=== PATIENT | female | born 1965 | race Caucasian/White ===

== ENCOUNTER 2021-01-28 19:17 | Emergency (ER) | payer OTHER ==
[~2021-01-28 19:17] MED LIST: FELDENE10 MG PO; FLEXERIL 10 MG10 MG PO; LORCET 5-325 M1 EACH PO; NORCO 7.5-3251 EACH PO; NORFLEX 100 MG100 MG PO; PREDNISONE 20 M20 MG PO; PREDNISONE 50 M50 MG PO; VENTOLIN HFA 66.7 GM INH; Voltaren Gel 1 % TOP
[2021-01-28 20:21] LABS: RED BLOOD COUNT 5.11 M/UL (4.00-5.10); WHITE BLOOD COUNT 10.4 K/UL (4.5-11.0)
[2021-01-28 20:39] LABS: BUN/CREATININE RATIO 16 (0-10)
[2021-01-28] MEDS ORDERED: PERCOCET 5/325 T1 EA PO (23:21)
== END 2021-01-28 23:40 | disposition home or self-care (01) ==
LOC: ER1 19:17
PROVIDERS: Family Medicine
DX: R10.31 Right lower quadrant pain (principal); F17.210 Nicotine dependence, cigarettes, uncomplicated
CPT/HCPCS: 72100; 73502; 80053; 81001; 84703; 85025; 99284; J2060; J2270; J2550; Q9967

== ENCOUNTER 2021-06-02 18:10 | Emergency (ER) | payer OTHER ==
[~2021-06-02 18:10] MED LIST changes: +PERCOCET 5/325 T1 EA PO
[2021-06-02] MEDS ORDERED: NORFLEX 100 MG100 MG PO (21:17)
== END 2021-06-02 21:35 | disposition home or self-care (01) ==
LOC: ER1 18:10
DX: M25.551 Pain in right hip (principal); I10 Essential (primary) hypertension; Z87.442 Personal history of urinary calculi; F17.210 Nicotine dependence, cigarettes, uncomplicated; Z88.6 Allergy status to analgesic agent; Z88.0 Allergy status to penicillin; Z88.8 Allergy status to other drugs, medicaments and biological substances
CPT/HCPCS: 72192; 99283; J1885

== ENCOUNTER → 2021-06-20 | Outpatient (CLI) | payer OTHER | LOC: EMI 15:04 | DX: M87.051 Idiopathic aseptic necrosis of right femur (principal); M25.451 Effusion, right hip | CPT/HCPCS: 73721 ==

== ENCOUNTER → 2021-07-08 | Outpatient (CLI) | payer OTHER | LOC: NM 10:00 | DX: K31.84 Gastroparesis (principal) | CPT/HCPCS: 78264; A9541 ==

== ENCOUNTER 2021-08-09 13:07 | Emergency (ER) | payer OTHER ==
[~2021-08-09] VITALS: Ht 172.7 cm; Wt 79.4 kg
== END 2021-08-09 16:30 | disposition home or self-care (01) ==
LOC: ER1 13:07
DX: U07.1 COVID-19 (principal); Z23 Encounter for immunization; I10 Essential (primary) hypertension; G43.909 Migraine, unspecified, not intractable, without status migrainosus; Z87.442 Personal history of urinary calculi; F17.200 Nicotine dependence, unspecified, uncomplicated; Z88.0 Allergy status to penicillin; Z88.8 Allergy status to other drugs, medicaments and biological substances
CPT/HCPCS: 71045; 93005; 99284; M0245

== ENCOUNTER 2021-11-07 17:04 | Emergency (ER) | payer OTHER ==
[2021-11-07 19:17] LABS: HEMOGLOBIN 15.3 gm/dl (12.3-15.3); RED BLOOD COUNT 4.82 M/UL (4.00-5.10); WHITE BLOOD COUNT 8.7 K/UL (4.5-11.0)
[2021-11-07 19:35] LABS: BUN/CREATININE RATIO 16 (0-10)
== END 2021-11-07 22:43 | disposition home or self-care (01) ==
LOC: ER1 17:04
PROVIDERS: Physician Assistant
DX: G89.29 Other chronic pain (principal); R10.9 Unspecified abdominal pain; R11.2 Nausea with vomiting, unspecified; F41.9 Anxiety disorder, unspecified; F17.290 Nicotine dependence, other tobacco product, uncomplicated; F11.20 Opioid dependence, uncomplicated
CPT/HCPCS: 80053; 81001; 83690; 85025; 99284; Q9967

== ENCOUNTER 2021-11-28 06:59 | Emergency (ER) | payer OTHER ==
[2021-11-28 08:26] LABS: RED BLOOD COUNT 4.49 M/UL (4.00-5.10); WHITE BLOOD COUNT 8.9 K/UL (4.5-11.0)
[2021-11-28 08:47] LABS: BUN/CREATININE RATIO 25 (0-10)
[2021-11-28] MEDS ORDERED: ZOFRAN 4 MG TAB4 MG PO (12:24)
[2021-11-28] MEDS ORDERED: MOTION SICKNESS25 M3 PO (12:24)
== END 2021-11-28 12:30 | disposition home or self-care (01) ==
LOC: ER1 06:59
PROVIDERS: Physician Assistant Medical
DX: R10.13 Epigastric pain (principal); R10.816 Epigastric abdominal tenderness; I10 Essential (primary) hypertension
CPT/HCPCS: 71045; 80053; 81001; 82550; 82553; 83690; 83735; 84439; 84443; 84484; 85025; 93005; 96374; 96375; 99285; C9113; J2405; J2550; J7030; Q0177; Q9967

== ENCOUNTER 2022-01-22 16:34 | Emergency (ER) | payer OTHER ==
[~2022-01-22 16:34] MED LIST changes: +MOTION SICKNESS25 M3 PO; +ZOFRAN 4 MG TAB4 MG PO
[2022-01-22 17:23] LABS: HEMOGLOBIN 13.6 gm/dl (12.3-15.3); RED BLOOD COUNT 4.29 M/UL (4.00-5.10); WHITE BLOOD COUNT 8.5 K/UL (4.5-11.0)
[2022-01-22 17:51] LABS: BUN/CREATININE RATIO 17 (0-10)
[2022-01-22] MEDS ORDERED: PERCOCET 5/325 T1 EA PO (18:36)
== END 2022-01-22 20:11 | disposition home or self-care (01) ==
LOC: ER1 16:34
PROVIDERS: Family Medicine
DX: R07.81 Pleurodynia (principal); R10.84 Generalized abdominal pain; R10.2 Pelvic and perineal pain; M54.9 Dorsalgia, unspecified; R11.2 Nausea with vomiting, unspecified; F17.290 Nicotine dependence, other tobacco product, uncomplicated
CPT/HCPCS: 71260; 80053; 85025; 96374; 96375; 99284; J2270; J2405; Q9967